=== PATIENT | male | born 1990 | race Caucasian/White ===

== ENCOUNTER 2024-05-19 12:00 | Emergency (ER) | payer SELFPAY ==
[~2024-05-19] VITALS: Ht 175.3 cm; Wt 92.5 kg
[2024-05-19 12:01] VITALS: O2SAT 97
[2024-05-19] MEDS ORDERED: IBUP200C25 PO (12:19)
[2024-05-19] MEDS ORDERED: PERI0.126 PO (13:01)
[2024-05-19] MEDS ORDERED: AMOX875T2 PO (13:01)
[2024-05-19 13:11] VITALS: BP 139/83; TEMP 97.8
== END 2024-05-19 13:13 | disposition home or self-care (01) ==
LOC: M ED 12:00
DX: K02.9 Dental caries, unspecified (principal); K08.89 Other specified disorders of teeth and supporting structures; Z79.2 Long term (current) use of antibiotics; Z79.1 Long term (current) use of non-steroidal anti-inflammatories (NSAID); Z79.899 Other long term (current) drug therapy